=== PATIENT | female | born 1935 | race Caucasian/White ===

== ENCOUNTER 2017-09-14 20:42 | Emergency (ER) | END 2017-09-15 04:05 | disposition home or self-care (01) ==

== ENCOUNTER 2019-01-18 17:36 | Observation (INO) | payer MEDICARE, BC ==
[~2019-01-18] VITALS: Ht 162.6 cm; Wt 85.4 kg
[~2019-01-18 17:36] MED LIST: HYDR-4011 PO
--- NOTE | 2019-01-18 19:08 | ERD ---
ER Documentation Chief Complaint Chief Complaint DIZZINESS WITH SYNCOPE LAST NIGHT, HX OF CVA HPI 83-year-old female with a history of stroke presenting with complaints of unsteady gait for the past 3 days that has been progressively worsening. She does have some vertigo intermittently while laying down. However the vertigo is not positional. She has been suffering from a URI for the past 1 week with associated cough but no shortness of breath or chest pain. She also complains of chronic neck pain that has been worsening. No fevers or chills. Last night when she got up, she felt so off balance that she had a fall but denies any injuries. ROS All systems reviewed and are negative except as per history of present illness. Medications Home Meds Active Scripts Atorvastatin* (Atorvastatin*) 40 Mg Tablet, 40 MG PO QHS, #30 TAB Prov:ROSANNE CUENCA MD 01/19/19 Clopidogrel Bisulfate (Clopidogrel) 75 Mg Tablet, 75 MG GTB DAILY for 30 Days, TAB 3 Refills Prov:ROSANNE CUENCA MD 01/19/19 Hydrocodone/Acetaminophen (Melcroft 5-325 Tablet) 1 Each Tablet, 1 TAB PO Q4 PRN for PAIN, #20 TAB Prov:MANJU,ROSIE 09/15/17 Allergies Allergies: Coded Allergies: No Known Allergy (Unverified , 09/14/17) PMhx/Soc History of Surgery: Yes (SAIDA KNEE REPLACEMENT) Anesthesia Reaction: No Hx Neurological Disorder: Yes (Stroke without residual deficits) Hx Respiratory Disorders: No Hx Cardiac Disorders: No Hx Psychiatric Problems: No Hx Miscellaneous Medical Probl: No Hx Alcohol Use: No Hx Substance Use: No Hx Tobacco Use: No Smoking Status: Never smoker FmHx Family History: No diabetes Physical Exam Vitals Vital Signs Date Temp Pulse Resp B/P (MAP) Pulse Ox O2 O2 Flow FiO2 Time Delivery Rate 01/18/19 78 16 162/82 100 Room Air 20:25 (108) 01/18/19 78 22 141/68 99 Room Air 18:30 (92) 01/18/19 85 16 95/71 (79) 97 Room Air 18:08 01/18/19 97.3 84 18 135/69 94 18:00 (91) Physical Exam Const: No acute distress Head: Atraumatic Eyes: Normal Conjunctiva, PERRLA, EOMI, no nystagmus ENT: Normal External Ears, Nose and Mouth. Neck: Full range of motion. No meningismus. Resp: Clear to auscultation bilaterally Cardio: Regular rate and rhythm, no murmurs Abd: Soft, non tender, non distended. Normal bowel sounds Skin: No petechiae or rashes Back: No midline or flank tenderness Ext: No cyanosis, or edema Neur: Awake and alert, oriented x3, normal speech, no facial asymmetry, cranial nerves intact, strength and sensations intact in all 4 extremities. Normal rapid alternating movements. Gait mostly steady, but has episodes of loss of balance Psych: Normal Mood and Affect Result Diagram: 01/18/19182101/18/191821 Results 24 hrs Laboratory Tests Test 01/18/19 18:22 01/18/19 18:37 01/18/19 20:06 White Blood Count 6.9 10^3/ul Red Blood Count 4.19 10^6/ul Hemoglobin 13.2 g/dl Hematocrit 39.4 % Mean Corpuscular Volume 94.0 fl Mean Corpuscular Hemoglobin 31.5 pg Mean Corpuscular 33.5 g/dl Hemoglobin Concent Red Cell Distribution Width 12.4 % Platelet Count 195 10^3/UL Mean Platelet Volume 9.9 fl Immature Granulocytes % 0.400 % Neutrophils % 67.8 % Lymphocytes % 18.5 % Monocytes % 10.8 % Eosinophils % 1.9 % Basophils % 0.6 % Nucleated Red Blood Cells % 0.0 /100WBC Immature Granulocytes # 0.030 10^3/ul Neutrophils # 4.7 10^3/ul Lymphocytes # 1.3 10^3/ul Monocytes # 0.7 10^3/ul Eosinophils # 0.1 10^3/ul Basophils # 0.0 10^3/ul Nucleated Red Blood Cells # 0.0 10^3/ul Sodium Level 139 mmol/L Potassium Level 4.2 mmol/L Chloride Level 106 mmol/L Carbon Dioxide Level 25 mmol/L Anion Gap 8 Blood Urea Nitrogen 9 mg/dl Creatinine 0.59 mg/dl Est Glomerular Filtrat mL/min Rate mL/min Glucose Level 146 mg/dl Calcium Level 9.6 mg/dl Troponin I < 0.012 ng/ml Bedside Glucose 155 mg/dL Urine Color YELLOW Urine Clarity SLIGHTLY CLOUDY Urine pH 6.0 Urine Specific [place] 1.026 Urine Ketones NEGATIVE mg/dL Urine Nitrite NEGATIVE mg/dL Urine Bilirubin NEGATIVE mg/dL Urine Urobilinogen NEGATIVE mg/dL Urine Leukocyte Esterase 1+ Jose/ul Urine Microscopic RBC 5 /HPF Urine Microscopic WBC 7 /HPF Urine Squamous Epithelial Cells FEW /HPF Urine Bacteria FEW /HPF Urine Hemoglobin 1+ mg/dL Urine Glucose NEGATIVE mg/dL Urine Total Protein NEGATIVE mg/dl Current Medications Medications Dose Sig/Vitor Start Time Status Last (Trade) Ordered Route PRN Stop Time Admin Dose Reason Admin IV Flush 10 ml STK-MED 01/18/19 DC (NS 10 ml) ONCE .ROUTE 19:01/18/19 19:28 Sodium 100 ml @ ud STK-MED 01/18/19 DC Chloride ONCE .ROUTE :01/18/19 19:28 Iohexol 100 ml @ ud STK-MED 01/18/19 DC ONCE .ROUTE :01/18/19 19:28 Procedures/MDM EMERGENT LABS AND DIAGNOSTIC STUDIES: Lab Results above were reviewed and interpreted by me. CBC: no anemia or evidence of infection BMP: No evidence of clinically significant electrolyte abnormality, acidosis, renal failure, hypoglycemia Troponin within normal limits, not indicative of cardiac ischemia UA: few WBCs, 1+ LE, possibly c/w infection 12-lead EKG was interpreted by Francy Mark MD: Normal Sinus Rhythm with ventricular rate of 78 beats per minute Left anterior fascicular block. No acute ST or T wave changes suggestive of acute ischemia or STEMI. Radiology Results as interpreted by Radiology below were reviewed by Dennis Mark MD: Chest x-ray: no acute abnormalities CT head: no acute abnormalities CTA brain and neck: Left FINGERNAIL SCULPTURER stenosis Initial Nursing notes reviewed. Previous Medical Records requested via the Electronic Health Record. EMERGENCY DEPARTMENT COURSE / MEDICAL DECISION MAKING: Patient presents with 3 days of intermittent vertigo and ataxia. CVA was considered, given her age and history of stroke. However patient not a TPA candidate as symptoms have been going on >4 hours and currently she is as ymptomatic at time of exam. However, stroke workup was initiated. No evidence of acute stroke on CT but CTA does show Left FINGERNAIL SCULPTURER stenosis vs occlusion, which can explain the patient's symptoms. I spoke with the stroke neurologist at [facility], Dr. Culp, who explained that endovascular intervention would not be recommended or be done if patient transferred to them, as the risk of complication from attempted endovascular intervention outweighs the benefit in this patient who has not suffered a strok e, but is having intermittent symptoms. He recommended dual antiplatelet therapy and statin for medical management, admission for MRI and stroke workup. I explained all of this to the patient and her family at bedside. THey are agreeable with plan for admission here. She was given aspirin in the ER. Patient will be admitted for further workup and management. Patient will be admitted under Dr. Cuenca, awaiting call back at end of the shift. Signed out to Dr. Rios to discuss with Dr. Cuenca. 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
[2019-01-18] MEDS ORDERED: IOHEXOL 100 ML ONE (19:27)
[2019-01-18] MEDS ORDERED: SOD CHLORIDE 0.9% 100 ML ONE (19:27)
[2019-01-18] MEDS ORDERED: ONDANSETRON 4 MG INJ IV PRN ×2 (20:30→22:30)
[2019-01-18] MEDS ORDERED: ASPIRIN 325 MG TAB PO ONE (20:30)
[2019-01-18] MEDS ORDERED: ACETAMINOPHEN 325 MG TAB PO PRN (20:30)
[2019-01-18 22:22] VITALS: PULSE 78
[2019-01-18 22:23] VITALS: BP 136/63; PULSE 80; RESP 18
[2019-01-18 22:24] VITALS: Ht 162.6 cm; Wt 85.4 kg
[2019-01-18] MEDS ORDERED: HYDROCODONE/APAP (5/325) TAB PO PRN (22:30)
[2019-01-18] MEDS ORDERED: MECLIZINE 12.5 MG TAB PO PRN (22:30)
--- NOTE | 2019-01-18 23:31 | QN ---
Documentation Comment I discussed the patient with the admitting MD Dr Barton at 8:30 pm , who was made aware of the stroke neurologist's recommendation, the patient condition. The patient is admitted to to Tel Disclaimer: Inadvertent spelling and grammatical errors are likely due to EHR/dictation software use and do not reflect on the overall quality of patient care. Also, please note that the electronic time recorded on this note does not necessarily reflect the actual time of the patient encounter. JOVITA GANDHI MD January 18, 2019 23:31
[2019-01-19] VITALS (7 sets, daily range): BP systolic 120–135; BP diastolic 56–62; PULSE 70–87; RESP 18
[2019-01-19] MEDS ORDERED: ZOLPIDEM 5 MG TAB PO PRN
[2019-01-19] MEDS ORDERED: ASPIRIN 81 MG TAB PO SCH (09:00)
[2019-01-19] MEDS ORDERED: CLOPIDOGREL 75 MG TAB GTB SCH (09:30)
[2019-01-19] MEDS ORDERED: CLOP75TA28 GTB (09:33)
--- NOTE | 2019-01-19 09:34 | PDOCDIS ---
Discharge Instructions CONDITION [id number] Patient Condition: [id number] Good HOME CARE INSTRUCTIONS: [id number] Diet Instructions: [id number] Low Fat /Cholesterol ACTIVITY: [id number] Activity Restrictions: [id number] Slowly Increase Activity FOLLOW UP/APPOINTMENTS Follow-up Plan pcp [address] Raines 1 week ROSANNE CUENCA MD January 19, 2019 09:34
[2019-01-19] MEDS ORDERED: ATOR40TA68 PO (09:36)
--- NOTE | 2019-01-19 14:07 | HP ---
DATE OF ADMISSION: 01/18/2019 CHIEF COMPLAINT: Dizziness. HISTORY OF PRESENT ILLNESS: An 83-year-old female presented to emergency room with complaint of unst priya gait for the last 3 days prior to admission. She also reported symptoms of vertigo. The patien t denies any focal weakness or numbness. No visual or speech deficits. She was also diagnosed with bronchitis and prescribed a Z-Mauro as outpatient recently. Initial evaluation included CAT scan of th e brain. This showed no intracranial hemorrhage, mass or evidence of acute transcortical infarct. C T angiogram of the brain showed focal short segment occlusion or severe stenosis of the proximal segm ent of the posterior cerebral artery. The case was discussed with the interventional radiologist. T here was no need for vascular intervention. The patient had MRI of the brain following admission. T his showed left frontal convexity, acute subcortical ischemic small vessel infarct. There was chroni c right posterior frontal shane radiata and left peripheral frontal lobe infarct. Moderate chronic microvascular ischemic disease and diffuse volume loss was noted. The patient reports taking baby as pirin daily at home. She reported feeling better following admission. PAST MEDICAL HISTORY: Arthritis especially involving the neck. MEDICATIONS PRIOR TO ADMISSION: 1. Baby aspirin. 2. [place]. 3. Vitamin supplements. SOCIAL HISTORY: The patient lives at home. She is independent. She denies tobacco or alcohol use. PHYSICAL EXAMINATION: GENERAL: Well-developed, well-nourished elderly female who is in no apparent distress. VITAL SIGNS: Stable. She is afebrile. HEENT: Extraocular muscles are intact. Pupils are equal and reactive to light bilaterally. Sclerae are anicteric. Oropharynx is clear and moist. NECK: Supple. No JVD, no carotid bruits. LUNGS: Clear to auscultation bilaterally. CARDIAC: Regular rate and rhythm. No murmurs, rubs or gallops. ABDOMEN: Soft, nontender, nondistended. Normoactive bowel sounds. EXTREMITIES: No clubbing, cyanosis or edema. NEUROLOGICAL: Cranial nerves II through XII are intact. Motor and sensory are intact in all extremi ties. There is a mild ataxia while standing. Coordination is intact. LABORATORY DATA: CBC is within normal limits. Basic metabolic panel is also within normal limits. ASSESSMENT: 1. An 83-year-old female with acute left frontal lobe ischemic infarct causing ataxia. There is no motor or sensory deficit. 2. Severe stenosis involving the posterior cerebral artery on the left. PLAN: 1. Place in tele observation. Discontinue baby aspirin and start Plavix 75 mg p.o. daily. Physical therapy and evaluation. 2. Neurology consultation was requested. 3. Discharge planning if cleared by neurology. 4. Lipitor 40 mg p.o. at bedtime was also started. Dictated By: ROSANNE BLACKWELL/NTS Conf#: [id number] DID#: [id number] CC: DULCE DIAZ MD;*EndCC*
== END 2019-01-19 13:17 | disposition home or self-care (01) ==
LOC: E/R 17:36 → 6WM 20:29
PROVIDERS: ADMIT Internal Medicine; ATTEND Internal Medicine
DX: I63.9 Cerebral infarction, unspecified (principal); R27.0 Ataxia, unspecified; I66.22 Occlusion and stenosis of left posterior cerebral artery; Z86.73 Personal history of transient ischemic attack (TIA), and cerebral infarction without residual deficits; Z79.82 Long term (current) use of aspirin
CPT/HCPCS: 36415; 70450; 70496; 70498; 70551; 71045; 80048; 81001; 82962; 84484; 85025; 93005; 99285; G0378; Q9967